=== PATIENT | male | born 1945 | race African-American/Black ===

== ENCOUNTER 2022-01-25 10:40 | Emergency (ER) | payer MEDICARE ==
[~2022-01-25] VITALS: Ht 182.9 cm; Wt 86.0 kg
[2022-01-25 10:53] VITALS: BP 141/79
== END 2022-01-25 14:13 | disposition left against medical advice (07) ==
LOC: ER 10:40
DX: Z53.21 Procedure and treatment not carried out due to patient leaving prior to being seen by health care provider (principal); I49.9 Cardiac arrhythmia, unspecified
CPT/HCPCS: 93005